=== PATIENT | female | born 1960 | race Caucasian/White ===

== ENCOUNTER 2019-08-08 23:08 | Emergency (ER) | payer BC ==
--- NOTE | 2019-08-08 23:25 | EDM.PDOC ---
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, Cold Therapy, NSAIDS - Related Data Allergies Allergy/AdvReac Type Severity Reaction Status Date / Time ciprofloxacin Allergy Itching Verified 08/08/19 23:16 sulfamethoxazole Allergy Itching Verified 08/08/19 23:18 [From Bactrim] trimethoprim [From Bactrim] Allergy Itching Verified 08/08/19 23:18 Home Meds: Home Meds Hydrocodone/Acetaminophen [Hydrocodon-Acetaminophen 5-325] 1 each PO Q6HR #20 tablet 08/08/19 [Rx] Past Medical History HEENT History: Reports: Other (See Below) (Dental issues with fear of dentist) Social & Family History - Family History Family Medical History: Noncontributory ED ROS GENERAL - Review of Systems Review Of Systems: See Below Constitutional: Reports: No Symptoms HEENT: Reports: Dental Pain Respiratory: Reports: No Symptoms Cardiovascular: Reports: No Symptoms Endocrine: Reports: No Symptoms GI/Abdominal: Reports: No Symptoms : Reports: No Symptoms Musculoskeletal: Reports: No Symptoms Skin: Reports: No Symptoms Neurological: Reports: No Symptoms Psychiatric: Reports: No Symptoms Hematologic/Lymphatic: Reports: No Symptoms Immunologic: Reports: No Symptoms ED EXAM, GENERAL - Physical Exam Exam: See Below Free Text/Narrative:: And oriented in mild painful distress. Shows inflammation to the right cheek. There is no involvement of the auditory canals or tympanic membranes. Neck is soft and supple no lymphadenopathy. PERRLA. #14 show a significant crack with pieces of dentition missing and apparent carry. 30,31 and 32 are in very poor condition eroded to the gumline. Thorax is clear. Cardiac is regular no murmur. Exam Limited By: No Limitations Departure - Departure Time of Disposition: 23:58 Disposition: Home, Self-Care 01 Condition: Good Clinical Impression: Pain, dental - Discharge Information *PRESCRIPTION DRUG MONITORING PROGRAM REVIEWED*: Yes *COPY OF PRESCRIPTION DRUG MONITORING REPORT IN PATIENT KRISTIE: Yes Additional Instructions: Do not take anymore Tylenol nor ibuprofen this evening. Fill the prescription in the morning for hydrocodone/acetaminophen 5/325 #20. Take 1 of these every 6 hours in conjunction with ibuprofen starting tomorrow. When at the pharmacy obtaining your prescription, asked for dental wax or temporary filling to cover this chipped tooth. It will help keep debris as well as air from entering the crack. Also apply Anbesol or other dental pain relievers with a saturated Q-tip allowing you to press it onto the tooth surface firmly Line and search "[facility]" and also 1 day denture fitting in [place]. Continue with your antibiotic as prescribed by Dr. Traore. Try to get an appointment as soon as possible for dental evaluation. - Problem List & Annotations (1) Pain, dental SNOMED Code(s): 88364091 Code(s): K08.89 - OTHER SPECIFIED DISORDERS OF TEETH AND SUPPORTING STRUCTURES Status: Acute Priority: High (2) Fracture of tooth SNOMED Code(s): 79376332 Code(s): S02.5XXA - FRACTURE OF TOOTH (TRAUMATIC), INIT FOR CLOS FX Status : Chronic Priority: High Qualifiers: Encounter type: subsequent encounter Fracture type: open - Problem List Review Problem List Initiated/Reviewed/Updated: Yes - Assessment/Plan Plan: Do not take anymore Tylenol nor ibuprofen this evening. Fill the prescription in the morning for hydrocodone/acetaminophen 5/325 #20. Take 1 of these every 6 hours in conjunction with ibuprofen starting tomorrow. When at the pharmacy obtaining your prescription, asked for dental wax or temporary filling to cover this chipped tooth. It will help keep debris as well as air from entering the crack. Also apply Anbesol or other dental pain relievers with a saturated Q-tip allowing you to press it onto the tooth surface firmly Line and search "[facility]" and also 1 day denture fitting in [place]. Continue with your antibiotic as prescribed by Dr. Traore. Try to get an appointment as soon as possible for dental evaluation.
[2019-08-08] MEDS: Ketorolac 60 MG/2 ML SDV IM ONE (23:37)
[2019-08-08] MEDS: Acetaminophen/HYDROcodone 325-5 MG Tab PO ONE (23:40)
== END 2019-08-08 23:55 | disposition home or self-care (01) ==
LOC: KA.ED 23:08
DX: K08.89 Other specified disorders of teeth and supporting structures (principal); Z88.2 Allergy status to sulfonamides; Z88.1 Allergy status to other antibiotic agents
CPT/HCPCS: 96372; 99283; A9270-GY; J1885